=== PATIENT | female | born 1935 | race Caucasian/White ===

== ENCOUNTER 2016-12-16 17:18 | Emergency (ER) | payer OTHER, BC ==
[~2016-12-16] VITALS: Ht 157.5 cm; Wt 70.8 kg
[~2016-12-16 17:18] MED LIST: NATURE-THROID32.5 MG PO
[2016-12-16] MEDS ORDERED: LIDODERM 5% P1 PATCH TD (19:31)
[2016-12-16] MEDS ORDERED: TYLENOL WITH C1 EACH PO (19:31)
[2016-12-16 19:44] VITALS: BP 184/83
== END 2016-12-16 19:45 | disposition home or self-care (01) ==
LOC: EME 17:18
DX: M25.511 Pain in right shoulder (principal); M79.601 Pain in right arm; M54.2 Cervicalgia; R20.0 Anesthesia of skin
CPT/HCPCS: 73030; 73060; 99281; 99283

== ENCOUNTER 2017-11-19 14:35 | Emergency (ER) | payer OTHER, BC ==
[~2017-11-19] VITALS: Ht 154.9 cm; Wt 75.3 kg
[~2017-11-19 14:35] MED LIST changes: +LIDODERM 5% P1 PATCH TD; +TYLENOL WITH C1 EACH PO
[2017-11-19 15:22] LABS: HEMATOCRIT 40.1 % (36.0-46.0); HEMOGLOBIN 13.9 G/DL (11.9-15.5); MCHC 34.7 G/DL (30.0-36.0); MCV 92.4 FL (83-99); PLATELET COUNT 213 K/uL (156-360); RBC DIS.WIDTH-SD 44.1 % (39-53); RED BLOOD COUNT 4.34 M/uL (3.80-5.20); WHITE BLOOD COUNT 6.8 K/uL (4.1-10.2)
[2017-11-19 15:32] LABS: CHLORIDE 100 mEq/L (99-109); POTASSIUM 3.9 mEq/L (3.7-5.4); SODIUM 136 mEq/L (136-147)
[2017-11-19 15:33] LABS: GLUCOSE 110 mg/dL (70-99)
[2017-11-19 15:37] LABS: CREATININE 0.9 mg/dL (0.6-1.3); GFR ESTIMATE (CALCULATED) > 59 mL/min/
[2017-11-19 15:38] LABS: UREA NITROGEN (BUN) 22 mg/dL (9-23)
[2017-11-19 15:43] LABS: TROP-I INTERPRETATION NEGATIVE; TROPONIN-I < 0.01 ng/mL (0.0-0.30)
[2017-11-19 16:38] VITALS: BP 157/83
== END 2017-11-19 16:47 | disposition home or self-care (01) ==
LOC: EME 14:35
DX: R55 Syncope and collapse (principal); R42 Dizziness and giddiness; I45.10 Unspecified right bundle-branch block; Z90.710 Acquired absence of both cervix and uterus; Z85.828 Personal history of other malignant neoplasm of skin
CPT/HCPCS: 71046; 80048; 82948; 84484; 85027; 93005